=== PATIENT | female | born 1955 | race Caucasian/White ===

== ENCOUNTER 2017-01-02 11:56 | Emergency (ER) | payer MEDICARE ==
--- NOTE | 2017-01-02 12:59 | ER Document Report ---
ED Medical Screen (RME) - General Stated Complaint: ANXIETY Time seen by provider: 12:56 Mode of Arrival: Medic Information source: Patient TRAVEL OUTSIDE OF THE [place] IN LAST 30 DAYS: No - HPI Patient complains to provider of: DIAPHORETIC WHILE HAVING BLOOD DRAWN AT [facility] DX Onset: Just prior to arrival Onset/Duration: Sudden Context: PT STATES SHE GETS ANXIOUS WHEN SHE SEES NEEDLES. BECAME SWEAT AND PALE. STATES FEELING BETTER NOW. Quality of pain: No pain Severity: None Pain Level: Denies Associated Symptoms: Cough (nonproductive), Dizzy/lightheaded, Nausea, Rhinorrhea, Sweating, Weakness. denies: Chest pain, Fever, Headache, Vomiting Exacerbated by: Denies Relieved by: Denies Similar symptoms previously: Yes Recently seen / treated by doctor: No - Related Data Smoking: Non-smoker Frequency of alcohol use: None Drug Abuse: None Pertinent History: HTN HYPOTHYROID ANXIETY/DEPRESSION OCD OSTERPOROSIS AGORAPHOBIA Allergies/Adverse Reactions: amoxicillin [Amoxicillin] Allergy (Verified 01/02/17 12:56) clavulanic acid [Clavulanic Acid] Allergy (Verified 01/02/17 12:56) Past Medical History - Past Medical History Cardiac Medical History: Reports: Hx Hypertension Endocrine Medical History: Reports: Hx Hypothyroidism Psychiatric Medical History: Reports: Hx Anxiety, Hx Depression, Hx Obsessive Compulsive Disorder Past Surgical History: Reports: Hx Appendectomy
[2017-01-02 13:03] VITALS: BP 138/74
== END 2017-01-02 13:04 | disposition left against medical advice (07) ==
LOC: ER 11:56
DX: F41.9 Anxiety disorder, unspecified (principal); R61 Generalized hyperhidrosis; R23.1 Pallor; R42 Dizziness and giddiness; R05 Cough; R11.0 Nausea; J34.89 Other specified disorders of nose and nasal sinuses; R53.1 Weakness; I10 Essential (primary) hypertension; Z88.0 Allergy status to penicillin; Z53.20 Procedure and treatment not carried out because of patient's decision for unspecified reasons
CPT/HCPCS: 99281

== ENCOUNTER → 2017-01-02 | Outpatient (CLI) | payer MEDICARE ==
[2017-01-02 11:52] LABS: ABSOLUTE EOSINOPHILS # (AUTO) 0.1 10^3/uL (0.0-0.6); ABSOLUTE LYMPHOCYTES (AUTO) 1.6 10^3/uL (0.5-4.7); ABSOLUTE MONOCYTES (AUTO) 0.3 10^3/uL (0.1-1.4); ABSOLUTE NEUT (AUTO) 2.5 10^3/uL (1.7-8.2); BASOPHILS % (AUTO) 0.7 % (0-2); EOSINOPHILS % (AUTO) 2.3 % (0-6); HEMATOCRIT 42.9 % (36.0-47.0); HEMOGLOBIN 14.3 g/dL (12.0-15.5); LYMPHOCYTES % (AUTO) 35.3 % (13-45); MEAN CORPUSCULAR HEMOGLOBIN 28.9 pg (27.0-33.4); MEAN CORPUSCULAR HGB CONC 33.3 g/dL (32.0-36.0); MEAN CORPUSCULAR VOLUME 87 fl (80-97); MONOCYTES % (AUTO) 7.1 % (3-13); RED BLOOD COUNT 4.94 10^6/uL (3.72-5.28); SEGMENTED NEUTROPHILS % (AUTO) 54.6 % (42-78); WHITE BLOOD COUNT 4.5 10^3/uL (4.0-10.5)
[2017-01-02 12:15] LABS: ALANINE AMINOTRANSFERASE 32 U/L (9-52); ALBUMIN 4.4 g/dL (3.5-5.0); ALKALINE PHOSPHATASE 92 U/L (38-126); ANION GAP 11 (5-19); ASPARTATE AMINO TRANSFERASE 26 U/L (14-36); BILIRUBIN,TOTAL 0.3 mg/dL (0.2-1.3); BLOOD UREA NITROGEN 17 mg/dL (7-20); CALCIUM 9.7 mg/dL (8.4-10.2); CARBON DIOXIDE 25 mmol/L (22-30); CHLORIDE 103 mmol/L (98-107); CHOLESTEROL 213.44 mg/dL (0-200); CREATININE RESULT 0.92 mg/dL (0.52-1.25); Direct HDL 55 mg/dL (>40); GLUCOSE 98 mg/dL (75-110); POTASSIUM 4.6 mmol/L (3.6-5.0); SODIUM 139.3 mmol/L (137-145); TOTAL PROTEIN 6.7 g/dL (6.3-8.2); TRIGLYCERIDES 98 mg/dL (<150)
[2017-01-02 12:26] LABS: DIRECT LDL 121 mg/dL (<100)
[2017-01-02 12:29] LABS: FREE T3 3.18 pg/mL (2.77-5.27)
[2017-01-02 12:42] LABS: THYROID STIMULATING HORMONE 0.79 uIU/mL (0.47-4.68)
== END ==
LOC: OD 11:01
PROVIDERS: ATTEND Family Medicine
DX: E03.9 Hypothyroidism, unspecified (principal); E87.1 Hypo-osmolality and hyponatremia; E55.9 Vitamin D deficiency, unspecified; I10 Essential (primary) hypertension; Z79.899 Other long term (current) drug therapy
CPT/HCPCS: 36415; 80048; 80061; 80076; 82306; 84439; 84443; 84481; 85025

== ENCOUNTER 2017-05-30 22:42 | Emergency (ER) | payer MEDICARE ==
[2017-05-30] MEDS ORDERED: HYDROCODONE/ACETAMINOPHEN 5-325 MG TABLET PO ONE (23:54)
--- NOTE | 2017-05-31 00:58 | ER Document Report ---
ED General - General Chief Complaint: Low Back Pain Stated Complaint: LOWER BACK AND LEG PAIN Time Seen by Provider: 05/30/17 23:46 Mode of Arrival: Ambulatory Information source: Patient Notes: 61-year-old female presents with complaints of low back pain rating down her leg. Patient notes symptoms have been ongoing for 1 month. Patient denies any fevers or chills nausea vomiting or diarrhea. Patient has been seen multiple times by her primary care physician and chiropractor notes improvement in pain but then it comes back. Patient has not been treated with any steroids or narcotics TRAVEL OUTSIDE OF THE [place] IN LAST 30 DAYS: No - HPI Onset: Other Onset/Duration: Persistent Quality of pain: Achy Severity: Mild Pain Level: 1 Associated symptoms: Body/muscle aches Exacerbated by: Movement Relieved by: Denies Similar symptoms previously: Yes Recently seen / treated by doctor: Yes - Related Data Allergies/Adverse Reactions: amoxicillin [Amoxicillin] Allergy (Verified 05/30/17 23:00) clavulanic acid [Clavulanic Acid] Allergy (Verified 05/30/17 23:00) Home Medications: Current Home Medications Citalopram Hydrobromide [Citalopram HBr] 1 tab PO DAILY 05/30/17 [History] Levothyroxine Sodium [Synthroid 50 Mcg Tablet] 1 tab PO DAILY 05/30/17 [History] Lisinopril 1 tab PO DAILY 05/30/17 [History] Methocarbamol 1 tab PO Q4H PRN 05/30/17 [History] Past Medical History - Social History Smoking Status: Never Smoker Cigarette use (# per day): No Chew tobacco use (# tins/day): No Smoking Education Provided: No Frequency of alcohol use: None Drug Abuse: None Family History: Reviewed & Not Pertinent Patient has suicidal ideation: No Patient has homicidal ideation: No - Past Medical History Cardiac Medical History: Reports: Hx Hypertension Endocrine Medical History: Reports: Hx Hypothyroidism Renal/ Medical History: Denies: Hx Peritoneal Dialysis Psychiatric Medical History: Reports: Hx Anxiety, Hx Depression, Hx Obsessive Compulsive Disorder Past Surgical History: Reports: Hx Appendectomy - Immunizations Hx Diphtheria, Pertussis, Tetanus Vaccination: Yes Review of Systems - Review of Systems Notes: REVIEW OF SYSTEMS: CONSTITUTIONAL : Denies fever, chills, or sweats. Denies recent illness. EENT: Denies eye, ear, throat, or mouth pain or symptoms. Denies nasal or sinus congestion or discharge. Denies throat, tongue, or mouth swelling or difficulty swallowing. CARDIOVASCULAR: Denies chest pain. Denies palpitations or racing or irregular heart beat. Denies ankle edema. RESPIRATORY: Denies cough, cold, or chest congestion. Denies shortness of breath, difficulty breathing, or wheezing. GASTROINTESTINAL: Denies abdominal pain or distention. Denies nausea, vomiting , or diarrhea. Denies blood in vomitus, stools, or per rectum. Denies black, tarry stools. Denies constipation. GENITOURINARY: Denies difficulty urinating, painful urination, burning, frequency, blood in urine, or discharge. FEMALE GENITOURINARY: Denies vaginal bleeding, heavy or abnormal periods, irregular periods. Denies vaginal discharge or odor. MUSCULOSKELETAL: Admits to flank pain rating down her leg SKIN: Denies rash, lesions or sores. HEMATOLOGIC : Denies easy bruising or bleeding. LYMPHATIC: Denies swollen, enlarged glands. NEUROLOGICAL: Denies confusion or altered mental status. Denies passing out or loss of consciousness. Denies dizziness or lightheadedness. Denies headache. Denies weakness or paralysis or loss of use of either side. Denies problems with gait or speech. Denies sensory loss, numbness, or tingling. Denies seizures. PSYCHIATRIC: Denies anxiety or stress. Denies depression, suicidal ideation, or homicidal ideation. ALL OTHER SYSTEMS REVIEWED AND NEGATIVE. PHYSICAL EXAMINATION: GENERAL: Well-appearing, well-nourished and in no acute distress. HEAD: Atraumatic, normocephalic. EYES: Pupils equal round and reactive to light, extraocular movements intact, conjunctiva are normal. ENT: Nares patent, oropharynx clear without exudates. Moist mucous membranes. NECK: Normal range of motion, supple without lymphadenopathy LUNGS: Breath sounds clear to auscultation bilaterally and equal. No wheezes rales or rhonchi. HEART: Regular rate and rhythm without murmurs ABDOMEN: Soft, nontender, nondistended abdomen. No guarding, no rebound. No masses appreciated. Female : deferred Musculoskeletal: Mild left CVA tenderness NEUROLOGICAL: Cranial nerves grossly intact. Normal speech, normal gait. Normal sensory, motor exams PSYCH: Normal mood, normal affect. SKIN: Warm, Dry, normal turgor, no rashes or lesions noted. Dictation was performed using [employer] voice recognition software Physical Exam - Vital signs Vitals: Temp Pulse Resp BP Pulse Ox 99.3 F 113 H 22 H 147/83 H 100 05/30/17 23:03 05/30/17 23:03 05/30/17 23:03 05/30/17 23:03 05/30/17 23:03 Course - Re-evaluation Re-evalutation: 05/31/17 04:03 Physical examination notes no significant abnormality patient was given pain control and states her symptoms have resolved completely. She will be treated with anti-inflammatories and narcotics and is otherwise in no significant distress. Patient has no cauda equina concerns After performing a Medical Screening Examination, I estimate there is LOW risk for EXPANDING OR RUPTURED ABDOMINAL AORTIC ANEURYSM, CAUDA EQUINA SYNDROME, EPIDURAL MASS LESION, or HERNIATED DISK CAUSING SEVERE SPINAL STENOSIS, thus I consider the discharge disposition reasonable. I have reevaluated this patient multiple times and no significant life threatening changes are noted. The patient and I have discussed the diagnosis and risks, and we agree with discharging home and close follow-up. We also discussed returning to the Emergency Department immediately if new or worsening symptoms occur with the understanding that symptoms and presentations can change. We have discussed the symptoms which are most concerning (e.g., saddle anesthesia, urinary or bowel incontinence or retention, changing or worsening pain) that necessitate immediate return. - Vital Signs Vital signs: Temp Pulse Resp BP Pulse Ox 99.3 F 102 H 18 132/76 H 99 05/30/17 23:03 05/31/17 01:58 05/31/17 01:58 05/31/17 01:58 05/31/17 01:58 Discharge - Discharge Clinical Impression: Low back pain Qualifiers: Chronicity: acute Back pain laterality: left Sciatica presence: with sciatica Sciatica laterality: sciatica of left side Qualified Code(s): M54.42 - Lumbago with sciatica, left side Condition: Stable Disposition: HOME, SELF-CARE Instructions: Low Back Pain ([facility]) Prescriptions: Hydrocodone/Acetaminophen [Kihei 5-325 mg Tablet] 1 tab PO Q6 #10 tablet Prednisone [Deltasone 20 mg Tablet] 3 tab PO DAILY 5 Days Referrals: SRIRAM DOAN MD [Primary Care Provider] - Follow up tomorrow
[2017-05-31 02:00] VITALS: BP 132/76
== END 2017-05-31 01:58 | disposition home or self-care (01) ==
LOC: ER 22:42
DX: M54.42 Lumbago with sciatica, left side (principal); I10 Essential (primary) hypertension; Z88.0 Allergy status to penicillin
CPT/HCPCS: 99283; A9270

== ENCOUNTER 2017-06-07 10:23 | Emergency (ER) | payer MEDICARE ==
[2017-06-07] MEDS ORDERED: CYCLOBENZAPRINE HCL 10 MG TABLET PO ONE (10:36)
--- NOTE | 2017-06-07 10:39 | ER Document Report ---
ED Medical Screen (RME) - General Chief Complaint: Back Pain Stated Complaint: WEAKNESS Time Seen by Provider: 06/07/17 10:35 Mode of Arrival: Wheelchair Information source: Patient TRAVEL OUTSIDE OF THE [place] IN LAST 30 DAYS: No - HPI Patient complains to provider of: low back pain, generalized weakness, dizziness Onset: Other - 5 weeks Notes: 06/07/17 10:37 Patient is a 61-year-old female who presents to the emergency room complaining of low back pain is been going on for approximately 5 weeks, states she felt something snap in her back initially, she has been seen by her primary care provider, chiropractors, sports medicine physician, and in this emergency department for her symptoms over the past 5 weeks and she has had no relief with various treatment modalities, this morning she stated she felt something snap in her back once again and is now in "excruciating" pain - Related Data Allergies/Adverse Reactions: amoxicillin [Amoxicillin] Allergy (Verified 06/07/17 10:26) clavulanic acid [Clavulanic Acid] Allergy (Verified 06/07/17 10:26) Past Medical History - Past Medical History Cardiac Medical History: Reports: Hx Hypertension Endocrine Medical History: Reports: Hx Hypothyroidism Renal/ Medical History: Denies: Hx Peritoneal Dialysis Psychiatric Medical History: Reports: Hx Anxiety, Hx Depression, Hx Obsessive Compulsive Disorder Past Surgical History: Reports: Hx Appendectomy - Immunizations Hx Diphtheria, Pertussis, Tetanus Vaccination: Yes Physical Exam - Vital signs Vitals: Temp Pulse Resp BP Pulse Ox 97.6 F 119 H 24 H 176/94 H 99 06/07/17 10:06/07/17 10:06/07/17 10:06/07/17 10:06/07/17 10:26 Course - Vital Signs Vital signs: Temp Pulse Resp BP Pulse Ox 97.6 F 119 H 24 H 176/94 H 99 06/07/17 10:06/07/17 10:06/07/17 10:06/07/17 10:06/07/17 10:26
[2017-06-07] MEDS ORDERED: LORAZEPAM 1 MG TABLET PO ONE (11:04)
--- NOTE | 2017-06-07 11:07 | ER Document Report ---
ED Neck/Back Problem - General Mode of Arrival: Wheelchair TRAVEL OUTSIDE OF THE [place] IN LAST 30 DAYS: No - HPI Associated symptoms: Other - see above <MARTIN BLAND - Last Filed: 06/07/17 11:05> <VILMA HDEZ - Last Filed: 06/07/17 15:17> - General Chief Complaint: Back Pain Stated Complaint: WEAKNESS Time Seen by Provider: 06/07/17 10:35 Notes: Patient is a 61 year old female who presents to the ED with complaints of low back pain x5 weeks. Patient states she has seen her PCP, chiropractor, sports medicine physician and has been seen in the ED already for this pain with no relief from various medications and treatments. Patient states she had x rays done and was diagnosed with a muscle strain. Patient states this morning she woke up and tried to get out of bed and started having "excruciating pain". Patient states that the pain radiates down her left side of her left leg. (MARTIN BLAND) This 61-year-old female patient comes emergency room complaining of low back pain for 5 weeks. She reported started when she felt something pop in her lumbar back. She felt the same sensation again this morning and developed a new excruciating pain going down the left lateral thigh to the ankle. She was supposed to see her primary care this afternoon but came here instead. She was seen here on 05/30/2017 complaining of low back pain and left leg pain. 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 She does get benefit from chiropractic manipulation off and on but the discomfort comes back. Her physical exam shows some lumbar muscle tenderness, predominantly she has tenderness in the left lateral thigh along the tensor fascia nila. She also complains of numbness to the left hand, and Tinel and Phalen tests seem to be positive for carpal tunnel syndrome. (VILMA HDEZ) - Related Data Allergies/Adverse Reactions: amoxicillin [Amoxicillin] Allergy (Verified 06/07/17 10:26) clavulanic acid [Clavulanic Acid] Allergy (Verified 06/07/17 10:26) Past Medical History - General Information source: Patient - Social History Smoking Status: Never Smoker Frequency of alcohol use: None Drug Abuse: None Family History: Reviewed & Not Pertinent - Past Medical History Cardiac Medical History: Reports: Hx Hypertension Endocrine Medical History: Reports: Hx Hypothyroidism Renal/ Medical History: Denies: Hx Peritoneal Dialysis Psychiatric Medical History: Reports: Hx Anxiety, Hx Depression, Hx Obsessive Compulsive Disorder Past Surgical History: Reports: Hx Appendectomy - Immunizations Hx Diphtheria, Pertussis, Tetanus Vaccination: Yes <BALDOMARTIN - Last Filed: 06/07/17 11:05> Review of Systems - Review of Systems Constitutional: No symptoms reported EENT: No symptoms reported Cardiovascular: No symptoms reported Respiratory: No symptoms reported Gastrointestinal: No symptoms reported Genitourinary: No symptoms reported Female Genitourinary: No symptoms reported Musculoskeletal: See HPI, Back pain Skin: No symptoms reported Hematologic/Lymphatic: No symptoms reported Neurological/Psychological: No symptoms reported <BALDOMARTIN - Last Filed: 06/07/17 11:05> Physical Exam - General General appearance: Appears well, Alert In distress: None - HEENT Head: Normocephalic, Atraumatic Eyes: Normal Extraocular movements intact: Yes Pupils: PERRL - Respiratory Respiratory status: No respiratory distress Breath sounds: Normal - Cardiovascular Rhythm: Regular Heart sounds: Normal auscultation Murmur: No - Abdominal Inspection: Normal - Back Back: Normal - Extremities General upper extremity: Normal inspection, Normal ROM General lower extremity: Normal inspection, Normal ROM Wrist: Other - positive tinel and phalen testing - Neurological Neuro grossly intact: Yes - Psychological Associated symptoms: Normal affect, Normal mood - Skin Skin Temperature: Warm Skin Moisture: Dry Skin Color: Normal <BALDOMARTIN - Last Filed: 06/07/17 11:05> Course - Diagnostic Test Radiology reviewed: Image reviewed, Reports reviewed - The MRI of her lumbar spine shows a left paracentral disc herniation at L4-5 with flattening of the thecal sac near the takeoff of the left proximal L5 nerve root in the lateral recess. <VILMA HDEZ - Last Filed: 06/07/17 15:17> - Vital Signs Vital signs: Temp Pulse Resp BP Pulse Ox 97.6 F 119 H 24 H 126/79 H 92 06/07/17 10:26 06/07/17 10:26 06/07/17 13:00 06/07/17 12:01 06/07/17 13:00 Discharge <MARTIN BLAND - Last Filed: 06/07/17 11:05> <VILMA HDEZ - Last Filed: 06/07/17 15:17> - Discharge Clinical Impression: Herniated intervertebral disc of lumbar spine, Lumbosacral radiculopathy at L5 , Carpal tunnel syndrome of left wrist Condition: Stable Disposition: HOME, SELF-CARE Additional Instructions: Radiculopathy: Radiculopathy is irritation of a nerve. Sometimes this is called "pinched nerve." The pain can be sharp and stabbing, constant and dull, or burning in nature. The pain can occur in any area of the chest, shoulders, or arms. Sometimes the pain is provoked by coughing or moving. Radiculopathy can be caused by physical pressure on a nerve, such as a herniated disc or swollen joint in the spine. It can also be caused by viral infections within the nerve or by nerve damage due to diabetes or blood vessel disease. Radicular pain is treated with antiinflammatory medicine. Injections may help resistant cases, if we can identify a single nerve that's causing the pain. Surgery is usually not necessary. If symptoms do not improve with time, you may need additional testing, such as an MRI or EMG (electromyogram). Return if there is local weakness or numbness, shortness of breath, increasing pain, or other new symptoms. Carpal Tunnel Syndrome: Your examination suggests carpal tunnel syndrome of the left wrist. This syndrome is due to pressure on a nerve in the wrist. The pressure may be caused by an old injury, hard work using the wrist, work involving repeated motions of the hand, wrist positions that keep pressure on the joint, or arthritis in the wrist. Typical symptoms are tingling, numbness, and pain in the palm, thumb, index and middle fingers, and one side of the ring finger. Often a splint, ice packs, and antiinflammatory medication make the symptoms go away. If the physician feels that your problem is chronic, you will be referred to a specialist for further care. If symptoms do not go away, carpal tunnel syndrome may require surgery. You should call the doctor if pain increases, if you develop difficulty using the thumb or fingers, or if major swelling occurs. TAKE THE MEDICATION PRESCRIBED. REST IN A COMFORTABLE POSITION. FOLLOW UP WITH YOUR DOCTOR FOR REFERRAL TO A SPINE SURGEON FOR YOUR BACK AND A HAND SURGEON FOR YOUR WRIST. RETURN TO THE EMERGENCY ROOM IF ANY NEW OR WORSENING SYMPTOMS. Prescriptions: Hydrocodone/Acetaminophen [Hydrocodon-Acetaminophen 5-325] 1 each PO ASDIR PRN # 15 tablet PRN Reason: Referrals: SRIRAM DOAN MD [Primary Care Provider] - Follow up in 3-5 days Scribe Attestation: 06/07/17 14:34 I personally performed the services described in the documentation, reviewed and edited the documentation which was dictated to the scribe in my presence, and it accurately records my words and actions. (VILMA HDEZ) Scribe Documentation - Scribe Written by Trisha:: trisha Stearns, 06/07/2017, [id number] acting as scribe for :: Jina <MARTIN BLAND - Last Filed: 06/07/17 11:05>
[2017-06-07 11:16] LABS: APPEARANCE,URINE CLEAR; BILIRUBIN,URINE NEGATIVE (NEGATIVE); GLUCOSE, URINE NEGATIVE (NEGATIVE); KETONES,URINE NEGATIVE (NEGATIVE); LEUKOCYTE ESTERASE,URINE NEGATIVE (NEGATIVE); NITRITE,URINE NEGATIVE (NEGATIVE); PROTEIN,URINE NEGATIVE (NEGATIVE); URINE SPECIFIC GRAVITY 1.003; UROBILINOGEN,URINE NEGATIVE mg/dL (<2.0)
--- NOTE | 2017-06-07 14:35 | RADIOLOGY REPORT (SQ) ---
EXAM DESCRIPTION: MRI LUMBAR SPINE WITHOUT COMPLETED DATE/TIME: 06/07/2017 2:01 pm REASON FOR STUDY: LBP, left lat thigh and leg pain COMPARISON: CT abdomen 03/15/2010 Lumbar spine plain films 08/12/2015 TECHNIQUE: Sagittal and Axial imaging includes T1, T2, STIR and gradient echo sequences. Coronal T2/ HASTE imaging. LIMITATIONS: None. FINDINGS: VISUALIZED UPPER ABDOMEN: There is a right-sided ureteropelvic junction obstruction with m assive right hydronephrosis and diffuse right renal cortical thinning air. This is similar compared to CT from 03/15/2010. SEGMENTATION: No transitional anatomy. The lowest well-developed disc space is labeled L5-S1. ALIGNMENT: Anatomic. VERTEBRAE: Intact. BONE MARROW: Normal. No marrow replacement or reactive changes. DISC SIGNAL: Diffuse decreased T2 weighted intervertebral disc signal. There is disc space loss of h eight at L2-3 and L3-4. POSTERIOR ELEMENTS: Generally intact. No pars defect evident. HARDWARE: None in the spine. CORD AND CONUS: Normal in size and signal intensity. Conus at the L1-2 level. SOFT TISSUES: No aortic aneurysm seen. No bulky retroperitoneal adenopathy or mass. No paraspinal mas s or fluid. T12-L1: Unremarkable L1-L2: Mild diffuse posterior disc bulging, moderate bilateral facet and ligament hypertrophy cause b orderline central canal narrowing. No significant foraminal stenosis. L2-L3: Mild bilateral facet and ligament hypertrophy. Very mild left foraminal and lateral disc bulg ing. No central stenosis. No significant foraminal narrowing. L3-L4: Broad diffuse posterior disc bulge, moderate bilateral facet and ligament hypertrophy. No barbra tral stenosis. Mild right inferior foraminal narrowing without exiting L3 nerve root impingement. N o significant left L3-4 foraminal narrowing. L4-L5: Broad diffuse posterior disc bulging is present with a moderate-sized left paracentral disc he rniation, flattening the thecal sac near the takeoff of the left L5 nerve root in the lateral recess. These findings are best shown on axial T2 images 21-23, and sagittal image 8. No significant centr al canal stenosis. There is mild bilateral L4-5 foraminal narrowing without exiting L4 nerve root im pingement. L5-S1: Bulky bilateral facet hypertrophy right greater than left. No central stenosis. Mild right f oraminal narrowing without exiting L5 nerve root impingement. No left foraminal stenosis. LOWER THORACIC: Incompletely imaged. No stenosis seen. SACRUM: Visualized upper sacrum intact. OTHER: No other significant findings. IMPRESSION: Left paracentral disc herniation at L4-5, flattening the thecal sac near the takeoff of the left proximal L5 nerve root in the lateral recess Chronic right UPJ obstruction TECHNICAL DOCUMENTATION: JOB ID: [id number] [employer]- All Rights Reserved
[2017-06-07 15:49] VITALS: BP 121/76
== END 2017-06-07 15:49 | disposition home or self-care (01) ==
LOC: ER 10:23
DX: M51.26 Other intervertebral disc displacement, lumbar region (principal); M54.17 Radiculopathy, lumbosacral region; G56.02 Carpal tunnel syndrome, left upper limb; M54.9 Dorsalgia, unspecified; M54.5 Low back pain
CPT/HCPCS: 99284; 87086; 81001; 72148; A9270

== ENCOUNTER 2017-07-16 17:28 | Observation (INO) | payer OTHER, MEDICARE ==
[2017-07-16] MEDS ORDERED: ACETAMINOPHEN 325 MG TABLET PO PRN (18:48)
[2017-07-16] MEDS ORDERED: ONDANSETRON HCL INJ/PF 4 MG/2 ML SDV IV PRN (18:48)
[2017-07-16] MEDS ORDERED: NORMAL SALINE 1000 ML 1,000 ML IV PRN (18:48)
--- NOTE | 2017-07-16 19:09 | PDOC H&P ---
History of Present Illness Admission Date/PCP: 07/16/17 17:28 SRIRAM DOAN MD Patient complains of: Intractable back pain History of Present Illness: ADRIA FREEMAN is a 61 year old female with history of vitamin D deficiency as well as hypothyroidism, osteoporosis developed severe back pain of about 3 months duration. There was no history of fall. Apparently she tried to get up in bed and she felt a pop on her low back and that is when her symptoms started 3 months ago. Patient had seen by physician multiple times and has taken anti-inflammatories as well as muscle relaxants and analgesics without relief. Patient was seen in the emergency room as well as several days. Patient had an MRI of her lumbosacral spine showing herniated disc at L4 and L5. She was supposed to go to the pain clinic for intra-articular steroid injection but unable to comply. She was sent to the hospital directly by her primary care physician for admission. Patient reports the pain on the middle low back radiating to both lower extremities. There is no associated nausea or vomiting but there is numbness on the lower extremity. No chills or fever no dysuria urgency or frequency. Past Medical History Cardiac Medical History: Reports: Hypertension Endocrine Medical History: Reports: Hypothyroidism Psychiatric Medical History: Reports: Depression, General Anxiety Disorder, Other - Obsessive-compulsive. [place] phobia. Hematology: Reports: Other - Vitamin D deficiency. Past Surgical History Past Surgical History: Reports: Appendectomy Social History Information Source: Patient Smoking Status: Never Smoker Frequency of Alcohol Use: None Hx Recreational Drug Use: No Drugs: None Hx Prescription Drug Abuse: No Family History Family History: None Parental Family History Reviewed: Yes Children Family History Reviewed: Yes Sibling(s) Family History Reviewed.: Yes Medication/Allergy Home Medications: Citalopram Hydrobromide [Citalopram HBr] 1 tab PO DAILY 05/30/17 Levothyroxine Sodium [Synthroid 50 Mcg Tablet] 1 tab PO DAILY 05/30/17 Lisinopril 1 tab PO DAILY 05/30/17 Methocarbamol 1 tab PO Q4H PRN 05/30/17 Hydrocodone/Acetaminophen [Davison 5-325 mg Tablet] 1 tab PO Q6 #10 tablet Prednisone [Deltasone 20 mg Tablet] 3 tab PO DAILY 5 Days tablet 05/31/17 Hydrocodone/Acetaminophen [Hydrocodon-Acetaminophen 5-325] 1 each PO ASDIR PRN # 15 tablet 06/07/17 Allergies/Adverse Reactions: amoxicillin [Amoxicillin] Allergy (Verified 06/07/17 10:26) clavulanic acid [Clavulanic Acid] Allergy (Verified 06/07/17 10:26) Review of Systems Constitutional: PRESENT: weakness - Generalized with ambulatory dysfunction due to pain. ABSENT: chills, fever(s), headache(s), night sweats, weight gain, weight loss Eyes: ABSENT: visual disturbances Ears: ABSENT: hearing changes Nose, Mouth, and Throat: ABSENT: mouth pain, sore throat Cardiovascular: ABSENT: chest pain, dyspnea on exertion, edema, orthropnea, palpitations Respiratory: ABSENT: cough, dyspnea, hemoptysis, sputum Gastrointestinal: ABSENT: abdominal pain, bloating, constipation, diarrhea, hematemesis, hematochezia, melena, nausea, vomiting Genitourinary: ABSENT: dysuria, hematuria Musculoskeletal: ABSENT: joint swelling Integumentary: ABSENT: pruritus, rash, wounds Neurological: PRESENT: lack of coordination, numbness - Lower extremities bilateral, paresthesias - Bilateral. ABSENT: abnormal gait, abnormal speech, confusion, dizziness, focal weakness, frequent falls, syncope Psychiatric: PRESENT: anxiety, depression. ABSENT: homidical ideation, suicidal ideation Endocrine: ABSENT: cold intolerance, heat intolerance, polydipsia, polyuria Hematologic/Lymphatic: ABSENT: easy bleeding, easy bruising Physical Exam Vital Signs: Temp Pulse Resp BP Pulse Ox 98.7 F 79 18 118/80 100 07/16/17 18:01 07/16/17 18:01 07/16/17 18:01 07/16/17 18:01 07/16/17 18:01 Intake & Output 07/15/17 07/16/17 07/17/17 06:59 06:59 06:59 Weight 63.957 kg General appearance: PRESENT: cooperative, mild distress - Due to pain, morbidly obese Head exam: PRESENT: atraumatic, normocephalic Eye exam: PRESENT: conjunctiva pink, EOMI, PERRLA. ABSENT: scleral icterus Ear exam: PRESENT: normal external ear exam Mouth exam: PRESENT: moist, neck supple, tongue midline Neck exam: ABSENT: carotid bruit, JVD, lymphadenopathy, thyromegaly Respiratory exam: PRESENT: clear to auscultation lyn. ABSENT: rales, rhonchi, wheezes Cardiovascular exam: PRESENT: RRR. ABSENT: diastolic murmur, rubs, systolic murmur Pulses: PRESENT: normal dorsalis pedis pul Vascular exam: PRESENT: normal capillary refill GI/Abdominal exam: PRESENT: normal bowel sounds, soft, other - Percussion tenderness on the lumbosacral area. ABSENT: distended, guarding, mass, organolmegaly, rebound, tenderness Rectal exam: PRESENT: deferred Extremities exam: PRESENT: full ROM. ABSENT: calf tenderness, clubbing, pedal edema Neurological exam: PRESENT: alert, awake, oriented to person, oriented to place , oriented to time, oriented to situation Psychiatric exam: PRESENT: anxious, appropriate affect, normal mood. ABSENT: homicidal ideation, suicidal ideation Skin exam: PRESENT: dry, intact, warm. ABSENT: cyanosis, rash Assessment & Plan - Diagnosis (1) Intractable low back pain Is this a current diagnosis for this admission?: Yes (2) Anxiety and depression Is this a current diagnosis for this admission?: Yes (3) Essential hypertension Is this a current diagnosis for this admission?: Yes (4) Acquired hypothyroidism Is this a current diagnosis for this admission?: Yes (5) Vitamin D deficiency Is this a current diagnosis for this admission?: Yes (6) Osteoporosis Qualifiers: Osteoporosis type: unspecified Presence of current pathological fracture: unspecified Qualified Code(s): M81.0 - Age-related osteoporosis without current pathological fracture Is this a current diagnosis for this admission?: Yes (7) Obsessive compulsive disorder Qualifiers: Obsessive-compulsive disorder type: unspecified Qualified Code(s): F42.9 - Obsessive-compulsive disorder, unspecified Is this a current diagnosis for this admission?: Yes (8) Agoraphobia Is this a current diagnosis for this admission?: Yes - Time Time Spent: 30 to 50 Minutes - Plan Summary Plan Summary: The patient will be admitted to the medical floor. We will obtain routine laboratory including urinalysis CBC and basic metabolic panel. We will obtain PT PTT as well. We will consult pain management for further evaluation. In the meantime I will try the patient on Mobic, intravenous Decadron, muscle relaxant and as needed narcotics for pain control. We will have physical therapy involved as well. DVT prophylaxis with Lovenox will be placed. We will obtain a lumbosacral spine x-ray. Further testing depends on initial evaluation and per specialty recommendations outlined above.
[2017-07-16 20:26] LABS: HEMOGLOBIN 13.6 g/dL (12.0-15.5); HGB HCT DIFFERENCE -0.2; MEAN CORPUSCULAR HEMOGLOBIN 29.3 pg (27.0-33.4); MEAN CORPUSCULAR HGB CONC 33.1 g/dL (32.0-36.0); MEAN CORPUSCULAR VOLUME 89 fl (80-97); RED BLOOD COUNT 4.62 10^6/uL (3.72-5.28); RED CELL DISTRIBUTION WIDTH 13.9 % (11.5-14.0); WHITE BLOOD COUNT 6.9 10^3/uL (4.0-10.5)
[2017-07-16 20:43] LABS: PROTHROMBIN TIME 12.9 SEC (11.4-15.4)
[2017-07-16 20:44] LABS: PARTIAL THROMBOPLASTIN TIME 30.6 SEC (23.5-35.8)
[2017-07-16 20:45] LABS: ANION GAP 8 (5-19); BLOOD UREA NITROGEN 19 mg/dL (7-20); CALCIUM 9.8 mg/dL (8.4-10.2); CARBON DIOXIDE 28 mmol/L (22-30); CHLORIDE 98 mmol/L (98-107); CREATININE RESULT 0.74 mg/dL (0.52-1.25); GLUCOSE 104 mg/dL (75-110); POTASSIUM 3.7 mmol/L (3.6-5.0); SODIUM 133.8 mmol/L (137-145)
[2017-07-16] MEDS ORDERED: MELOXICAM 15 MG TABLET PO ONE (21:00)
[2017-07-16] MEDS: DEXAMETHASONE SOD PHOS INJ 10 MG/1 ML VIAL IV SCH (21:01)
[2017-07-16] MEDS: CYCLOBENZAPRINE HCL 10 MG TABLET PO SCH (21:01)
[2017-07-16 23:07] LABS: APPEARANCE,URINE CLEAR; BILIRUBIN,URINE NEGATIVE (NEGATIVE); GLUCOSE, URINE NEGATIVE (NEGATIVE); KETONES,URINE NEGATIVE (NEGATIVE); LEUKOCYTE ESTERASE,URINE NEGATIVE (NEGATIVE); NITRITE,URINE NEGATIVE (NEGATIVE); PROTEIN,URINE NEGATIVE (NEGATIVE); URINE SPECIFIC GRAVITY 1.003; UROBILINOGEN,URINE NEGATIVE mg/dL (<2.0)
[2017-07-16] MEDS: OXYCODONE-ACETAMINOPHEN 5-325 MG TABLET PO PRN (23:10)
--- NOTE | 2017-07-17 00:51 | RADIOLOGY REPORT (SQ) ---
EXAM DESCRIPTION: L SPINE WHOLE COMPLETED DATE/TIME: 07/16/2017 9:52 pm REASON FOR STUDY: back pain COMPARISON: 08/12/2015. NUMBER OF VIEWS: Five views including obliques. TECHNIQUE: AP, lateral, oblique, and sacral radiographic images acquired of the lumbar spine. LIMITATIONS: None. FINDINGS: MINERALIZATION: Osteopenia. SEGMENTATION: Normal. No transitional anatomy. ALIGNMENT: Normal. VERTEBRAE: Maintained height. No fracture or worrisome bone lesion. DISCS: Moderate disc desiccation between the L2 and S1 levels. POSTERIOR ELEMENTS: Moderate lower lumbar spondylosis at the L5-S1 level. HARDWARE: None in the spine. PARASPINAL SOFT TISSUES: Normal. PELVIS: Intact as visualized. No fractures or worrisome bone lesions. SI joints intact. OTHER: No other significant finding. IMPRESSION: [id number] disc desiccation and spondylosis of the lumbar spine. No significant i nterval change. TECHNICAL DOCUMENTATION: JOB ID: [id number] [employer]- All Rights Reserved
[2017-07-17] MEDS ORDERED: LANSOPRAZOLE 30 MG TAB.RAP.DR PO SCH (06:00)
[2017-07-17] MEDS: DEXAMETHASONE SOD PHOS INJ 10 MG/1 ML VIAL IV SCH ×2 (06:45→13:37)
[2017-07-17] MEDS: CYCLOBENZAPRINE HCL 10 MG TABLET PO SCH ×2 (06:46→13:37)
[2017-07-17] MEDS: OXYCODONE-ACETAMINOPHEN 5-325 MG TABLET PO PRN ×2 (08:23→13:55)
[2017-07-17] MEDS ORDERED: MELOXICAM 7.5 MG TABLET PO SCH (10:00)
[2017-07-17] MEDS ORDERED: LISINOPRIL 10 MG TABLET PO SCH (10:00)
[2017-07-17] MEDS ORDERED: CITALOPRAM HYDROBROMIDE PO SCH (10:00)
[2017-07-17] MEDS ORDERED: CITALOPRAM HYDROBROMIDE 20 MG TABLET PO SCH (10:00)
[2017-07-17] MEDS ORDERED: DOCUSATE SODIUM 100 MG CAPSULE PO SCH (10:00)
[2017-07-17] MEDS ORDERED: (PENDING PHARMACY ID) (Lisinopril [Lisinopril] 1 TAB) PO SCH (10:00)
[2017-07-17] MEDS ORDERED: LEVOTHYROXINE SODIUM 0.05 MG TABLET PO SCH (10:00)
[2017-07-17] MEDS ORDERED: ENOXAPARIN SODIUM INJ 40 MG/0.4 ML DISP.SYRIN SUBCUT SCH ×2 (10:00)
--- NOTE | 2017-07-17 11:42 | PDOC DISCHARGE SUMMARY ---
General - Admit/Disc Date/PCP Admission Date/Primary Care Provider: 07/16/17 18:48 SRIRAM DOAN MD Discharge Date: 07/17/17 - Discharge Diagnosis (1) Intractable low back pain Is this a current diagnosis for this admission?: Yes Summary: Treated with IV steroids and pain medications. Patient has had improvement but not resolution of the pain. (2) Anxiety and depression Is this a current diagnosis for this admission?: Yes (3) Acquired hypothyroidism Is this a current diagnosis for this admission?: Yes (4) Essential hypertension Is this a current diagnosis for this admission?: Yes (5) Obsessive compulsive disorder Is this a current diagnosis for this admission?: Yes (6) Osteoporosis Is this a current diagnosis for this admission?: Yes (7) Vitamin D deficiency Is this a current diagnosis for this admission?: Yes - Additional Information Discharge Diet: Regular Discharge Activity: Activity As Tolerated Home Medications: Citalopram Hydrobromide [Citalopram HBr] 1 tab PO DAILY 05/30/17 Levothyroxine Sodium [Synthroid 0.05 mg Tablet] 1 tab PO DAILY 05/30/17 Lisinopril 1 tab PO DAILY 05/30/17 Methocarbamol 1 tab PO Q4H PRN 05/30/17 Hydrocodone/Acetaminophen [Hydrocodon-Acetaminophen 5-325] 1 each PO ASDIR PRN # 15 tablet 06/07/17 Methylprednisolone [Medrol Dosepack (4 mg/Tab) 21 Tab/Dosepak] 4 mg PO ASDIR PRN #21 tab.ds.pk 07/17/17 Oxycodone HCl 5 mg PO Q6HP PRN #10 tablet 07/17/17 History of Present Illness History of Present Illness: ADRIA FREEMAN is a 61 year old female presented with severe lower back pain with left-sided sciatica. Patient has been dealing with back pain for the last 3 months. The patient has taken anti-inflammatories and muscle relaxants. The patient was supposed to have an epidural injection but canceled that because of fear regarding the procedure. She has an appointment in 2 weeks to see a back surgeon for an L4-L5 herniated disc. She has had no bowel or bladder dysfunction and no muscle weakness. She is admitted for intractable pain. Hospital Course Hospital Course: 61-year-old female who was admitted with intractable back pain. The patient has a history of an L4-L5 disc herniation. The patient had been treated as an outpatient but continued to have pain. Patient was given IV steroids in the form of Decadron as well as oxycodone. Patient reports that her pain has improved. She denies any radicular symptoms at this time. She does complain of left ankle pain however it is reproducible with palpation of her lateral ankle joint. Patient has not had any bowel or bladder dysfunction. She has not had any focal weakness. The patient reports that her pain is improved but has not resolved. It is tolerable with oral pain medications and I feel she is stable for discharge to home. Patient has an appointment with orthopedic surgery within the next several weeks for consideration of an epidural injection versus other noninvasive means of treatment. The patient did have an appointment for an epidural injection but canceled that because of her fear of the injection. Patient also has anxiety and hypertension both of which were stable during this hospitalization. Patient is being sent home on a tapering dose of Medrol. She reports having problems with prednisone in the past but has not had any problems while hospitalized on the IV steroids. Physical Exam Vital Signs: Temp Pulse Resp BP Pulse Ox 97.8 F 63 15 140/82 H 99 07/17/17 07:55 07/17/17 10:00 07/17/17 07:55 07/17/17 07:55 07/17/17 07:55 Intake & Output 07/16/17 07/17/17 07/18/17 06:59 06:59 06:59 Intake Total 1800 Balance 1800 Weight 63.957 kg General appearance: PRESENT: no acute distress Eye exam: PRESENT: conjunctiva pink. ABSENT: scleral icterus Ear exam: PRESENT: normal external ear exam Mouth exam: PRESENT: moist, tongue midline Neck exam: ABSENT: JVD Respiratory exam: PRESENT: clear to auscultation lyn. ABSENT: rales, rhonchi, wheezes Cardiovascular exam: PRESENT: RRR. ABSENT: diastolic murmur, rubs, systolic murmur GI/Abdominal exam: PRESENT: normal bowel sounds, soft. ABSENT: distended, guarding, mass, organolmegaly, rebound, tenderness Rectal exam: PRESENT: deferred Extremities exam: ABSENT: calf tenderness, clubbing, pedal edema Musculoskeletal exam: PRESENT: tenderness - Tenderness palpation of the left lateral ankle joint. Minimal effusion. Neurological exam: PRESENT: alert, awake, oriented to person, oriented to place , oriented to time, oriented to situation, CN II-XII grossly intact. ABSENT: motor sensory deficit Psychiatric exam: PRESENT: anxious Skin exam: PRESENT: dry, intact, warm. ABSENT: cyanosis, rash Results Laboratory Results: 07/16/17 20:15 07/16/17 20:15 07/16/17 07/16/17 07/16/17 20:15 20:15 21:30 WBC 6.9 RBC 4.62 Hgb 13.6 Hct 41.0 MCV 89 MCH 29.3 MCHC 33.1 RDW 13.9 Plt Count 204 Sodium 133.8 L Potassium 3.7 Chloride 98 Carbon Dioxide 28 Anion Gap 8 BUN 19 Creatinine 0.74 Est GFR ( Amer) > 60 Est GFR (Non-Af Amer) > 60 Glucose 104 Calcium 9.8 Urine Color COLORLESS Urine Appearance CLEAR Urine pH 7.0 Ur Specific [place] 1.003 Urine Protein NEGATIVE Urine Glucose (UA) NEGATIVE Urine Ketones NEGATIVE Urine Blood NEGATIVE Urine Nitrite NEGATIVE Ur Leukocyte Esterase NEGATIVE Impressions: Lumbar Spine X-Ray 07/16/17 00:00 IMPRESSION: [id number] disc desiccation and spondylosis of the lumbar spine. No significant interval change. Qualifiers PATEINT BEING DISCHARGED WITH ANY OF THE FOLLOWING DIAGNOSIS?: No Plan Discharge Plan: Is discharged home. She will follow-up with her primary care doctor in 1 week. Patient already has an appointment with a back surgeon in the next several weeks. Time Spent: Less than 30 Minutes
[2017-07-17 11:44] VITALS: BP 135/72
== END 2017-07-17 15:45 | disposition home or self-care (01) ==
LOC: 2N 17:28 → UNDOADMOB 17:28 → 2N 18:48
DX: M54.42 Lumbago with sciatica, left side (principal); F41.1 Generalized anxiety disorder; F32.9 Major depressive disorder, single episode, unspecified; E03.9 Hypothyroidism, unspecified; I10 Essential (primary) hypertension; F42.9 Obsessive-compulsive disorder, unspecified; M81.0 Age-related osteoporosis without current pathological fracture; E55.9 Vitamin D deficiency, unspecified; M25.572 Pain in left ankle and joints of left foot; F40.00 Agoraphobia, unspecified; M51.26 Other intervertebral disc displacement, lumbar region; R26.89 Other abnormalities of gait and mobility; R27.9 Unspecified lack of coordination; E66.01 Morbid (severe) obesity due to excess calories; Z79.899 Other long term (current) drug therapy; Z82.49 Family history of ischemic heart disease and other diseases of the circulatory system
CPT/HCPCS: 36415; 85027; 85610; 85730; 80048; 81001; 72110; J1650; J3490; J7030; J1100 ×2

== ENCOUNTER → 2017-07-19 | Outpatient (CLI) | payer OTHER, MEDICARE ==
--- NOTE | 2017-07-19 16:52 | RADIOLOGY REPORT (SQ) ---
EXAM DESCRIPTION: FOOT LEFT COMPLETE COMPLETED DATE/TIME: 07/19/2017 4:03 pm REASON FOR STUDY: PAIN IN LEFT ANKLE AND JOINTS OF LEFT FOOT M25.572 PAIN IN LEFT ANKLE AND JOINTS OF LEFT FOOT COMPARISON: Left ankle three views same date NUMBER OF VIEWS: Three views. TECHNIQUE: AP, lateral and oblique radiographic images acquired of the left foot. LIMITATIONS: None. FINDINGS: MINERALIZATION: Normal. BONES: No acute fracture or dislocation. No worrisome bone lesions. JOINTS: 1st metatarsophalangeal joint osteoarthritis with joint space narrowing and bony spurring. SOFT TISSUES: No soft tissue swelling. No foreign body. OTHER: Small plantar and dorsal calcaneal spurs IMPRESSION: No acute fracture. 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
--- NOTE | 2017-07-19 16:53 | RADIOLOGY REPORT (SQ) ---
EXAM DESCRIPTION: ANKLE LEFT COMPLETE COMPLETED DATE/TIME: 07/19/2017 4:03 pm REASON FOR STUDY: PAIN IN LEFT ANKLE AND JOINTS OF LEFT FOOT M25.572 PAIN IN LEFT ANKLE AND JOINTS OF LEFT FOOT COMPARISON: Left foot three views same date NUMBER OF VIEWS: Three views. TECHNIQUE: AP, lateral, and oblique radiographic images acquired of the left ankle. LIMITATIONS: None. FINDINGS: MINERALIZATION: Normal. BONES: No acute fracture or dislocation. No worrisome bone lesions. JOINTS: No effusions. No malalignment at the ankle mortise SOFT TISSUES: No soft tissue swelling. No foreign body. OTHER: Small plantar calcaneal spur IMPRESSION: No acute findings. TECHNICAL DOCUMENTATION: JOB ID: [id number] [employer]- All Rights Reserved
== END ==
LOC: OD 15:36
PROVIDERS: ATTEND Family Medicine
DX: M25.572 Pain in left ankle and joints of left foot (principal); M19.072 Primary osteoarthritis, left ankle and foot

== ENCOUNTER → 2017-07-19 | Outpatient (CLI) | payer OTHER, MEDICARE ==
[2017-07-19 13:45] LABS: ANION GAP 11 (5-19); BLOOD UREA NITROGEN 24 mg/dL (7-20); CALCIUM 9.9 mg/dL (8.4-10.2); CARBON DIOXIDE 29 mmol/L (22-30); CHLORIDE 99 mmol/L (98-107); CREATININE RESULT 0.86 mg/dL (0.52-1.25); GLUCOSE 86 mg/dL (75-110); POTASSIUM 4.6 mmol/L (3.6-5.0); SODIUM 138.9 mmol/L (137-145)
== END ==
LOC: OD 12:48
PROVIDERS: ATTEND Family Medicine
DX: R60.0 Localized edema (principal)
CPT/HCPCS: 36415; 80048; 85379

== ENCOUNTER → 2017-10-09 | Outpatient (CLI) | payer OTHER, MEDICARE ==
[2017-10-09 14:28] LABS: ABSOLUTE EOSINOPHILS # (AUTO) 0.1 10^3/uL (0.0-0.6); ABSOLUTE LYMPHOCYTES (AUTO) 1.7 10^3/uL (0.5-4.7); ABSOLUTE MONOCYTES (AUTO) 0.5 10^3/uL (0.1-1.4); ABSOLUTE NEUT (AUTO) 3.2 10^3/uL (1.7-8.2); BASOPHILS % (AUTO) 0.3 % (0-2); EOSINOPHILS % (AUTO) 1.4 % (0-6); HEMATOCRIT 41.9 % (36.0-47.0); HEMOGLOBIN 14.4 g/dL (12.0-15.5); HGB HCT DIFFERENCE 1.3; LYMPHOCYTES % (AUTO) 31.6 % (13-45); MEAN CORPUSCULAR HEMOGLOBIN 29.6 pg (27.0-33.4); MEAN CORPUSCULAR HGB CONC 34.5 g/dL (32.0-36.0); MEAN CORPUSCULAR VOLUME 86 fl (80-97); MONOCYTES % (AUTO) 8.2 % (3-13); RED BLOOD COUNT 4.88 10^6/uL (3.72-5.28); RED CELL DISTRIBUTION WIDTH 13.4 % (11.5-14.0); SEGMENTED NEUTROPHILS % (AUTO) 58.5 % (42-78); WHITE BLOOD COUNT 5.5 10^3/uL (4.0-10.5)
[2017-10-09 14:48] LABS: ALANINE AMINOTRANSFERASE 42 U/L (9-52); ALBUMIN 4.3 g/dL (3.5-5.0); ALKALINE PHOSPHATASE 91 U/L (38-126); ANION GAP 11 (5-19); ASPARTATE AMINO TRANSFERASE 28 U/L (14-36); BILIRUBIN,DIRECT 0.4 mg/dL (0.0-0.4); BILIRUBIN,TOTAL 0.5 mg/dL (0.2-1.3); BLOOD UREA NITROGEN 20 mg/dL (7-20); CALCIUM 9.8 mg/dL (8.4-10.2); CARBON DIOXIDE 26 mmol/L (22-30); CHLORIDE 101 mmol/L (98-107); CREATININE RESULT 0.82 mg/dL (0.52-1.25); GLUCOSE 88 mg/dL (75-110); POTASSIUM 4.4 mmol/L (3.6-5.0); SODIUM 137.6 mmol/L (137-145); TOTAL PROTEIN 6.6 g/dL (6.3-8.2)
[2017-10-09 15:01] LABS: FREE T3 3.2 pg/mL (2.77-5.27)
[2017-10-09 15:15] LABS: THYROID STIMULATING HORMONE 0.61 uIU/mL (0.47-4.68)
== END ==
LOC: OD 13:08
PROVIDERS: ATTEND Family Medicine
DX: E03.9 Hypothyroidism, unspecified (principal); Z79.899 Other long term (current) drug therapy
CPT/HCPCS: 36415; 80053; 82306; 84439; 84443; 84481; 85025

== ENCOUNTER → 2018-05-14 | Outpatient (CLI) | payer MEDICARE, OTHER ==
[2018-05-14 15:55] LABS: ABSOLUTE EOSINOPHILS # (AUTO) 0.1 10^3/uL (0.0-0.6); ABSOLUTE MONOCYTES (AUTO) 0.4 10^3/uL (0.1-1.4); ABSOLUTE NEUT (AUTO) 2.8 10^3/uL (1.7-8.2); BASOPHILS % (AUTO) 0.6 % (0-2); EOSINOPHILS % (AUTO) 1.3 % (0-6); HEMATOCRIT 41.7 % (36.0-47.0); HEMOGLOBIN 14.5 g/dL (12.0-15.5); LYMPHOCYTES % (AUTO) 37.9 % (13-45); MEAN CORPUSCULAR HEMOGLOBIN 29.7 pg (27.0-33.4); MEAN CORPUSCULAR HGB CONC 34.9 g/dL (32.0-36.0); MEAN CORPUSCULAR VOLUME 85 fl (80-97); MONOCYTES % (AUTO) 7.6 % (3-13); PLATELET COUNT 190 10^3/uL (150-450); RED BLOOD COUNT 4.89 10^6/uL (3.72-5.28); RED CELL DISTRIBUTION WIDTH 13.6 % (11.5-14.0); SEGMENTED NEUTROPHILS % (AUTO) 52.6 % (42-78); TOTAL CELLS COUNTED % (AUTO) 100 %; WHITE BLOOD COUNT 5.3 10^3/uL (4.0-10.5)
[2018-05-14 16:30] LABS: ALANINE AMINOTRANSFERASE 34 U/L (9-52); ALBUMIN 4.3 g/dL (3.5-5.0); ALKALINE PHOSPHATASE 94 U/L (38-126); ANION GAP 14 (5-19); ASPARTATE AMINO TRANSFERASE 30 U/L (14-36); BILIRUBIN,DIRECT 0.3 mg/dL (0.0-0.4); BILIRUBIN,TOTAL 0.3 mg/dL (0.2-1.3); BLOOD UREA NITROGEN 20 mg/dL (7-20); CALCIUM 9.9 mg/dL (8.4-10.2); CARBON DIOXIDE 25 mmol/L (22-30); CHLORIDE 104 mmol/L (98-107); GLUCOSE 92 mg/dL (75-110); POTASSIUM 4.7 mmol/L (3.6-5.0); SODIUM 142.8 mmol/L (137-145); TOTAL PROTEIN 6.9 g/dL (6.3-8.2)
[2018-05-14 16:45] LABS: FREE T3 3.36 pg/mL (2.77-5.27); FREE T4 (FREE THYROXINE) 1.1 ng/dL (0.78-2.19)
[2018-05-14 16:58] LABS: THYROID STIMULATING HORMONE 1.27 uIU/mL (0.47-4.68)
== END ==
LOC: OD 15:14
PROVIDERS: ATTEND Family Medicine
DX: E03.9 Hypothyroidism, unspecified (principal); Z79.899 Other long term (current) drug therapy
CPT/HCPCS: 36415; 80053; 84439; 84443; 84481; 85025

== ENCOUNTER → 2018-10-23 | Outpatient (CLI) | payer OTHER, MEDICARE ==
[2018-10-23 14:39] LABS: ABSOLUTE EOSINOPHILS # (AUTO) 0.1 10^3/uL (0.0-0.6); ABSOLUTE LYMPHOCYTES (AUTO) 1.6 10^3/uL (0.5-4.7); ABSOLUTE MONOCYTES (AUTO) 0.3 10^3/uL (0.1-1.4); ABSOLUTE NEUT (AUTO) 2.6 10^3/uL (1.7-8.2); BASOPHILS % (AUTO) 0.5 % (0-2); EOSINOPHILS % (AUTO) 1.2 % (0-6); HEMATOCRIT 42.4 % (36.0-47.0); HEMOGLOBIN 14.6 g/dL (12.0-15.5); MEAN CORPUSCULAR HEMOGLOBIN 29.1 pg (27.0-33.4); MEAN CORPUSCULAR HGB CONC 34.5 g/dL (32.0-36.0); MEAN CORPUSCULAR VOLUME 84 fl (80-97); MONOCYTES % (AUTO) 6.5 % (3-13); PLATELET COUNT 189 10^3/uL (150-450); RED BLOOD COUNT 5.02 10^6/uL (3.72-5.28); RED CELL DISTRIBUTION WIDTH 13.7 % (11.5-14.0); SEGMENTED NEUTROPHILS % (AUTO) 56.8 % (42-78); TOTAL CELLS COUNTED % (AUTO) 100 %; WHITE BLOOD COUNT 4.5 10^3/uL (4.0-10.5)
[2018-10-23 14:55] LABS: ALANINE AMINOTRANSFERASE 26 U/L (9-52); ALBUMIN 4.6 g/dL (3.5-5.0); ALKALINE PHOSPHATASE 86 U/L (38-126); ANION GAP 8 (5-19); ASPARTATE AMINO TRANSFERASE 31 U/L (14-36); BILIRUBIN,DIRECT 0.3 mg/dL (0.0-0.4); BILIRUBIN,TOTAL 0.6 mg/dL (0.2-1.3); BLOOD UREA NITROGEN 19 mg/dL (7-20); CALCIUM 9.7 mg/dL (8.4-10.2); CARBON DIOXIDE 28 mmol/L (22-30); CHLORIDE 103 mmol/L (98-107); CHOLESTEROL 222.89 mg/dL (0-200); GLUCOSE 92 mg/dL (75-110); POTASSIUM 4.2 mmol/L (3.6-5.0); SODIUM 139.3 mmol/L (137-145); TRIGLYCERIDES 74 mg/dL (<150)
[2018-10-23 15:16] LABS: DIRECT LDL 138 mg/dL (<100)
[2018-10-23 15:22] LABS: FREE T3 3.67 pg/mL (2.77-5.27); FREE T4 (FREE THYROXINE) 1.25 ng/dL (0.78-2.19)
[2018-10-23 15:35] LABS: THYROID STIMULATING HORMONE 0.64 uIU/mL (0.47-4.68)
== END ==
LOC: OD 13:20
PROVIDERS: ATTEND Family Medicine
DX: Z79.899 Other long term (current) drug therapy (principal); E03.9 Hypothyroidism, unspecified; I10 Essential (primary) hypertension
CPT/HCPCS: 36415; 80053; 80061; 82306; 84439; 84443; 84481; 85025

== ENCOUNTER → 2019-05-01 | Outpatient (CLI) | payer MEDICARE ==
[2019-05-01 15:13] LABS: ABSOLUTE EOSINOPHILS # (AUTO) 0.1 10^3/uL (0.0-0.6); ABSOLUTE LYMPHOCYTES (AUTO) 1.9 10^3/uL (0.5-4.7); ABSOLUTE MONOCYTES (AUTO) 0.4 10^3/uL (0.1-1.4); ABSOLUTE NEUT (AUTO) 3.3 10^3/uL (1.7-8.2); BASOPHILS % (AUTO) 0.5 % (0-2); EOSINOPHILS % (AUTO) 1.2 % (0-6); HEMOGLOBIN 14.1 g/dL (12.0-15.5); LYMPHOCYTES % (AUTO) 33.2 % (13-45); MEAN CORPUSCULAR HGB CONC 34.3 g/dL (32.0-36.0); MEAN CORPUSCULAR VOLUME 85 fl (80-97); MONOCYTES % (AUTO) 7.4 % (3-13); PLATELET COUNT 186 10^3/uL (150-450); RED BLOOD COUNT 4.84 10^6/uL (3.72-5.28); RED CELL DISTRIBUTION WIDTH 13.7 % (11.5-14.0); SEGMENTED NEUTROPHILS % (AUTO) 57.7 % (42-78); TOTAL CELLS COUNTED % (AUTO) 100 %; WHITE BLOOD COUNT 5.6 10^3/uL (4.0-10.5)
[2019-05-01 15:32] LABS: ALANINE AMINOTRANSFERASE 30 U/L (9-52); ALBUMIN 4.4 g/dL (3.5-5.0); ALKALINE PHOSPHATASE 105 U/L (38-126); ANION GAP 8 (5-19); ASPARTATE AMINO TRANSFERASE 32 U/L (14-36); BILIRUBIN,DIRECT 0.3 mg/dL (0.0-0.4); BILIRUBIN,TOTAL 0.4 mg/dL (0.2-1.3); BLOOD UREA NITROGEN 22 mg/dL (7-20); CALCIUM 9.6 mg/dL (8.4-10.2); CARBON DIOXIDE 26 mmol/L (22-30); CHLORIDE 101 mmol/L (98-107); GLUCOSE 91 mg/dL (75-110); POTASSIUM 4.8 mmol/L (3.6-5.0); SODIUM 135.2 mmol/L (137-145); TOTAL PROTEIN 6.8 g/dL (6.3-8.2)
[2019-05-01 15:48] LABS: FREE T3 3.57 pg/mL (2.77-5.27); FREE T4 (FREE THYROXINE) 1.01 ng/dL (0.78-2.19)
[2019-05-01 16:01] LABS: THYROID STIMULATING HORMONE 1.54 uIU/mL (0.47-4.68)
== END ==
LOC: OD 14:25
PROVIDERS: ATTEND Family Medicine
DX: E03.9 Hypothyroidism, unspecified (principal); Z79.899 Other long term (current) drug therapy
CPT/HCPCS: 36415; 80053; 84439; 84443; 84481; 85025

== ENCOUNTER → 2019-11-17 | Outpatient (CLI) | payer MEDICARE | LOC: OD 14:17 | PROVIDERS: ATTEND Family Medicine | DX: Z11.4 Encounter for screening for human immunodeficiency virus [HIV] (principal) | CPT/HCPCS: 36415; 86701 ==

== ENCOUNTER → 2019-12-10 | Outpatient (CLI) | payer MEDICARE ==
[2019-12-12 13:56] LABS: ABSOLUTE EOSINOPHILS # (AUTO) 0.1 10^3/uL (0.0-0.6); ABSOLUTE LYMPHOCYTES (AUTO) 1.8 10^3/uL (0.5-4.7); ABSOLUTE MONOCYTES (AUTO) 0.3 10^3/uL (0.1-1.4); ABSOLUTE NEUT (AUTO) 2.8 10^3/uL (1.7-8.2); BASOPHILS % (AUTO) 0.5 % (0-2); EOSINOPHILS % (AUTO) 1.2 % (0-6); HEMATOCRIT 40.7 % (36.0-47.0); LYMPHOCYTES % (AUTO) 35.4 % (13-45); MEAN CORPUSCULAR HEMOGLOBIN 29.3 pg (27.0-33.4); MEAN CORPUSCULAR HGB CONC 34.5 g/dL (32.0-36.0); MEAN CORPUSCULAR VOLUME 85 fl (80-97); MONOCYTES % (AUTO) 6.7 % (3-13); PLATELET COUNT 189 10^3/uL (150-450); RED CELL DISTRIBUTION WIDTH 14.2 % (11.5-14.0); SEGMENTED NEUTROPHILS % (AUTO) 56.2 % (42-78); TOTAL CELLS COUNTED % (AUTO) 100 %
[2019-12-12 14:20] LABS: ALBUMIN 4.3 g/dL (3.5-5.0); ALKALINE PHOSPHATASE 88 U/L (38-126); ANION GAP 8 (5-19); ASPARTATE AMINO TRANSFERASE 28 U/L (14-36); BILIRUBIN,DIRECT 0.2 mg/dL (0.0-0.4); BILIRUBIN,TOTAL 0.4 mg/dL (0.2-1.3); BLOOD UREA NITROGEN 17 mg/dL (7-20); CALCIUM 9.6 mg/dL (8.4-10.2); CARBON DIOXIDE 27 mmol/L (22-30); CHLORIDE 101 mmol/L (98-107); CHOLESTEROL 225.18 mg/dL (0-200); GLUCOSE 83 mg/dL (75-110); POTASSIUM 4.3 mmol/L (3.6-5.0); TOTAL PROTEIN 7.1 g/dL (6.3-8.2); TRIGLYCERIDES 137 mg/dL (<150)
[2019-12-12 14:36] LABS: DIRECT LDL 137 mg/dL (<100)
[2019-12-12 15:01] LABS: FREE T3 2.61 pg/mL (2.77-5.27); FREE T4 (FREE THYROXINE) 0.95 ng/dL (0.78-2.19)
[2019-12-12 15:14] LABS: THYROID STIMULATING HORMONE 1.4 uIU/mL (0.47-4.68)
== END ==
LOC: OD 14:29
PROVIDERS: ATTEND Family Medicine
DX: E03.9 Hypothyroidism, unspecified (principal); I10 Essential (primary) hypertension; E55.9 Vitamin D deficiency, unspecified; Z79.899 Other long term (current) drug therapy
CPT/HCPCS: 36415; 80053; 80061; 82306; 84439; 84443; 84481; 85025

== ENCOUNTER 2020-08-26 00:28 | Emergency (ER) | payer MEDICARE ==
[2020-08-26] MEDS ORDERED: NORMAL SALINE 1000 ML 1,000 ML IV ONE (00:58)
--- NOTE | 2020-08-26 01:02 | ER Document Report ---
ED Medical Screen (RME) - General Chief Complaint: Near Syncope Stated Complaint: NAUSEA Time Seen by Provider: 08/26/20 00:58 Primary Care Provider: SRIRAM DOAN MD [Primary Care Provider] - Follow up as needed Mode of Arrival: Stretcher Information source: Patient Notes: Patient is a 64-year-old female coming in today with a near syncopal episode. Got up this evening to go to urinate and almost passed out. States that she has been off of her SSRI citalopram for several months and recently restarted it. Ever since then she has been having strange dilatations of her pupils. She has just not been feeling well for quite some time. Has numerous complaints related. Denies chest pain or shortness of breath. General: Nontoxic cardiac regular rate and rhythm No acute distress I have greeted and performed a rapid initial assessment of this patient. A comprehensive ED assessment and evaluation of the patient, analysis of test results and completion of the medical decision making process will be conducted by additional ED providers. TRAVEL OUTSIDE OF THE [place] IN LAST 30 DAYS: No - Related Data Allergies/Adverse Reactions: amoxicillin [Amoxicillin] Allergy (Verified 06/07/17 10:26) clavulanic acid [Clavulanic Acid] Allergy (Verified 06/07/17 10:26) NSAIDS (Non-Steroidal Anti-Inflamma Allergy (Verified 08/26/20 00:58) prednisone Allergy (Verified 08/26/20 00:58) Past Medical History - Past Medical History Cardiac Medical History: Reports: Hx Hypertension Endocrine Medical History: Reports: Hx Hypothyroidism Renal/ Medical History: Denies: Hx Peritoneal Dialysis Psychiatric Medical History: Reports: Hx Anxiety, Hx Depression, Hx Obsessive Compulsive Disorder Past Surgical History: Reports: Hx Appendectomy - Immunizations Hx Diphtheria, Pertussis, Tetanus Vaccination: Yes Physical Exam - Vital signs Vitals: Temp Pulse Resp BP Pulse Ox 98.6 F 72 18 130/65 H 98 08/26/20 00:38 08/26/20 00:38 08/26/20 00:38 08/26/20 00:38 08/26/20 00:38 Course - Vital Signs Vital signs: Temp Pulse Resp BP Pulse Ox 98.6 F 72 18 130/65 H 98 08/26/20 00:38 08/26/20 00:38 08/26/20 00:38 08/26/20 00:38 08/26/20 00:38 Doctor's Discharge - Discharge Referrals: SRIRAM DOAN MD [Primary Care Provider] - Follow up as needed
[2020-08-26 01:56] LABS: ABSOLUTE EOSINOPHILS # (AUTO) 0.1 10^3/uL (0.0-0.6); ABSOLUTE LYMPHOCYTES (AUTO) 2.1 10^3/uL (0.5-4.7); ABSOLUTE MONOCYTES (AUTO) 0.5 10^3/uL (0.1-1.4); ABSOLUTE NEUT (AUTO) 4.5 10^3/uL (1.7-8.2); BASOPHILS % (AUTO) 0.6 % (0-2); HEMATOCRIT 41.3 % (36.0-47.0); HEMOGLOBIN 14.2 g/dL (12.0-15.5); LYMPHOCYTES % (AUTO) 28.7 % (13-45); MEAN CORPUSCULAR HEMOGLOBIN 29.8 pg (27.0-33.4); MEAN CORPUSCULAR HGB CONC 34.4 g/dL (32.0-36.0); MEAN CORPUSCULAR VOLUME 87 fl (80-97); MONOCYTES % (AUTO) 7.3 % (3-13); PLATELET COUNT 252 10^3/uL (150-450); RED BLOOD COUNT 4.77 10^6/uL (3.72-5.28); RED CELL DISTRIBUTION WIDTH 13.5 % (11.5-14.0); SEGMENTED NEUTROPHILS % (AUTO) 62.4 % (42-78); TOTAL CELLS COUNTED % (AUTO) 100 %; WHITE BLOOD COUNT 7.2 10^3/uL (4.0-10.5)
[2020-08-26 02:10] LABS: ALBUMIN 4.1 g/dL (3.5-5.0); ALKALINE PHOSPHATASE 103 U/L (38-126); ANION GAP 8 (5-19); ASPARTATE AMINO TRANSFERASE 29 U/L (14-36); BILIRUBIN,DIRECT 0.3 mg/dL (0.0-0.4); BILIRUBIN,TOTAL 0.4 mg/dL (0.2-1.3); BLOOD UREA NITROGEN 25 mg/dL (7-20); CALCIUM 9.7 mg/dL (8.4-10.2); CARBON DIOXIDE 27 mmol/L (22-30); CHLORIDE 100 mmol/L (98-107); GLUCOSE 112 mg/dL (75-110); POTASSIUM 4.9 mmol/L (3.6-5.0); TOTAL PROTEIN 6.3 g/dL (6.3-8.2)
--- NOTE | 2020-08-26 03:51 | ER Document Report ---
ED General - General Chief Complaint: Near Syncope Stated Complaint: NAUSEA Time Seen by Provider: 08/26/20 00:58 Primary Care Provider: SRIRAM DOAN MD [Primary Care Provider] - Follow up as needed Mode of Arrival: Stretcher TRAVEL OUTSIDE OF THE [place] IN LAST 30 DAYS: No - HPI Notes: 64-year-old female presents after she had an episode where she thought she was going to at home. Patient states that she got up to use the restroom around 11:20 PM, states that she really was not feeling well, after urination and standing up from the toilet, she had an episode of lightheadedness where she felt she was going to pass out. She did not pass out. She had no other associated symptoms. She currently symptom free. Patient states that she believes she is having a reaction to restarting citalopram. Patient states that she last took citalopram in January. She states that on July 19 she had a panic attack. She states that on July 21 she went to buddhist. Patient then states that in June she had several days of diarrhea. She states that she had a colonoscopy on August 12 due to the fact that she had so much diarrhea, she has not yet received results yet. Patient states that on Sunday she had a telephone call with her PCP office discussed that she really has not been feeling well since June. It was decided that she should restart her citalopram. On Sunday she took 10 mg of citalopram. She states that after taking her first dose, she felt that her pupils were dilated and that her heart was racing, however she was doing 2 loads of laundry so she ignored her symptoms. She states yesterday after taking 10 mg of citalopram, she again felt as if her pupils were dilating and she had some difficulty concentrating. She called her PCP and was advised to stop taking the medication. She also states that she is not able to go into the office per their Covid policy, rather she drives and sits in the parking lot and talks on her cell phone, she does not have Internet to do a video visit. Patient states in summation, she has just not been feeling well since June. - Related Data Allergies/Adverse Reactions: amoxicillin [Amoxicillin] Allergy (Verified 06/07/17 10:26) clavulanic acid [Clavulanic Acid] Allergy (Verified 06/07/17 10:26) NSAIDS (Non-Steroidal Anti-Inflamma Allergy (Verified 08/26/20 00:58) prednisone Allergy (Verified 08/26/20 00:58) Past Medical History - General Information source: Patient - Social History Smoking Status: Never Smoker Family History: None Patient has homicidal ideation: No - Past Medical History Cardiac Medical History: Reports: Hx Hypertension Endocrine Medical History: Reports: Hx Hypothyroidism Renal/ Medical History: Denies: Hx Peritoneal Dialysis Psychiatric Medical History: Reports: Hx Anxiety, Hx Depression, Hx Obsessive Compulsive Disorder Past Surgical History: Reports: Hx Appendectomy - Immunizations Hx Diphtheria, Pertussis, Tetanus Vaccination: Yes Review of Systems - Review of Systems Constitutional: denies: Fever EENT: denies: Blurred vision Cardiovascular: denies: Chest pain Respiratory: denies: Short of breath Gastrointestinal: denies: Abdominal pain Genitourinary: No symptoms reported Female Genitourinary: No symptoms reported Musculoskeletal: No symptoms reported Skin: No symptoms reported Hematologic/Lymphatic: No symptoms reported Neurological/Psychological: Anxiety Physical Exam - Vital signs Vitals: Temp Pulse Resp BP Pulse Ox 98.6 F 72 18 130/65 H 98 08/26/20 00:38 08/26/20 00:38 08/26/20 00:38 08/26/20 00:38 08/26/20 00:38 - General General appearance: Appears well, Alert In distress: None - HEENT Head: Normocephalic, Atraumatic Extraocular movements intact: Yes Pupils: PERRL. No: Dilated - Respiratory Breath sounds: Normal - Cardiovascular Rhythm: Regular Heart sounds: Normal auscultation - Abdominal Tenderness: Nontender - Extremities General upper extremity: Normal ROM General lower extremity: Normal ROM. No: Edema - Neurological Neuro grossly intact: Yes Cognition: Normal Orientation: AAOx4 Cranial nerves: Normal Cerebellar coordination: Normal Motor strength normal: LUE Sensory: Normal - Psychological Associated symptoms: Flat affect - Skin Skin Temperature: Warm Course - Re-evaluation Re-evalutation: 64-year-old female here with an episode of lightheadedness/presyncope after she stood up after urination. She had no chest pain or shortness of breath at the time, episode quickly resolved, she is currently symptom-free. Suspect she may had had a micturition response or some brief orthostasis related to standing. She is well-appearing, nontoxic, vital signs stable, lungs are clear, heart RRR, no neuro deficits. Patient also gives very long history of not feeling well since June. She also reports some potential side effects to taking citalopram which she has since stopped. Laboratory evaluation done through triage. No leukocytosis or left shift. No acute anemia. Electrolytes okay. Creatinine within normal limits. No elevation of LFTs. Patient was given these results. She is currently receiving 1 L of normal saline, will also check a urine. I discussed with her that potentially she is having a mild adjustment reaction given the Covid pandemic, she agreed that it has been causing her anxiety. 08/26/20 06:15 No UTI. 08/26/20 06:17 Patient updated on results of UTI. Encouraged her to have close PCP follow-up. Return precautions given, stable time discharge. - Vital Signs Vital signs: Temp Pulse Resp BP Pulse Ox 98.6 F 63 17 122/67 97 08/26/20 03:15 08/26/20 03:15 08/26/20 05:01 08/26/20 05:01 08/26/20 05:01 - Laboratory Result Diagrams: 08/26/20 01:31 08/26/20 01:31 Laboratory results interpreted by me: 08/26/20 01:31 Sodium 135.3 L BUN 25 H Glucose 112 H - EKG Interpretation by Me Additional EKG results interpreted by me: EKG is interpreted by me. Sinus bradycardia, rate 59. Narrow QRS, QTC within normal limits. No ST segment elevation or depression. There appeared to be some PACs. Discharge - Discharge Clinical Impression: Adverse reaction to SSRI antidepressant drug Qualifiers: Encounter type: initial encounter Qualified Code(s): T43.225A - Adverse effect of selective serotonin reuptake inhibitors, initial encounter Disposition: HOME, SELF-CARE Additional Instructions: Please follow-up with your primary care doctor, you may wish to discuss other medication alternatives. Return to the emergency department for any concerning worsening symptoms. Referrals: SRIRAM DOAN MD [Primary Care Provider] - Follow up as needed
[2020-08-26 06:05] LABS: APPEARANCE,URINE CLEAR; BILIRUBIN,URINE NEGATIVE (NEGATIVE); COLOR,URINE STRAW; GLUCOSE, URINE NEGATIVE (NEGATIVE); KETONES,URINE NEGATIVE (NEGATIVE); LEUKOCYTE ESTERASE,URINE NEGATIVE (NEGATIVE); NITRITE,URINE NEGATIVE (NEGATIVE); PROTEIN,URINE NEGATIVE (NEGATIVE); URINE SPECIFIC GRAVITY 1.005; UROBILINOGEN,URINE NEGATIVE mg/dL (<2.0)
[2020-08-26 06:38] VITALS: BP 132/78
--- NOTE | 2020-08-26 18:06 | EKG REPORT ---
SEVERITY:- NORMAL ECG - SINUS BRADYCARDIA : Confirmed by: Sammy Singh MD 26-Aug-2020 18:06:01
== END 2020-08-26 06:42 | disposition home or self-care (01) ==
LOC: ER 00:28
DX: R55 Syncope and collapse (principal); R42 Dizziness and giddiness; T43.225A Adverse effect of selective serotonin reuptake inhibitors, initial encounter; F41.9 Anxiety disorder, unspecified; R00.1 Bradycardia, unspecified; I10 Essential (primary) hypertension; Z88.0 Allergy status to penicillin; Z88.8 Allergy status to other drugs, medicaments and biological substances
CPT/HCPCS: 93005; 99284; 96360; 96361; 36415; 85025; 80053; 81001; 93010; J7030

== ENCOUNTER 2020-10-28 03:03 | Emergency (ER) | payer MEDICARE ==
[2020-10-28 04:51] LABS: A TYPE INFLUENZA AG NEGATIVE (NEGATIVE); B INFLUENZA AG NEGATIVE (NEGATIVE)
--- NOTE | 2020-10-28 06:44 | ER Document Report ---
ED General - General Chief Complaint: Nasal Congestion Stated Complaint: CONGESTION/LOST TASTE/SMELL/SORE THROAT/HEADACHE Primary Care Provider: SRIRAM DOAN MD [Primary Care Provider] - Follow up as needed Notes: 65-year-old female with history of hypertension, hypothyroidism, environmental allergies presents with approximately 5 days of frontal sinus pressure, nasal congestion, bilateral ear pain, mild throat pain. Patient says that she has had similar symptoms before with prior "sinus infections" which were previously resolved without intervention. Patient denies any copious nasal or postnasal discharge, fever, severe headache, immunocompromise history, recent antibiotics, cough, chest pain, shortness of breath, confusion, neck pain or stiffness TRAVEL OUTSIDE OF THE [place] IN LAST 30 DAYS: No - Related Data Allergies/Adverse Reactions: amoxicillin [Amoxicillin] Allergy (Verified 06/07/17 10:26) clavulanic acid [Clavulanic Acid] Allergy (Verified 06/07/17 10:26) NSAIDS (Non-Steroidal Anti-Inflamma Allergy (Verified 08/26/20 00:58) prednisone Allergy (Verified 08/26/20 00:58) Home Medications: HTN. THYROID. VIT D Past Medical History - General Information source: Patient - Social History Smoking Status: Never Smoker Frequency of alcohol use: None Drug Abuse: None Family History: None - Past Medical History Cardiac Medical History: Reports: Hx Hypertension Endocrine Medical History: Reports: Hx Hypothyroidism Renal/ Medical History: Denies: Hx Peritoneal Dialysis Psychiatric Medical History: Reports: Hx Anxiety, Hx Depression, Hx Obsessive Compulsive Disorder Past Surgical History: Reports: Hx Appendectomy - Immunizations Hx Diphtheria, Pertussis, Tetanus Vaccination: Yes Review of Systems - Review of Systems Notes: REVIEW OF SYSTEMS: CONSTITUTIONAL : Denies fever, chills, or sweats. EENT: + recent cold/sinus symptoms, + throat pain CARDIOVASCULAR: Denies chest pain, MAGI RESPIRATORY: Denies cough, denies shortness of breath. GASTROINTESTINAL: Denies abdominal pain, nausea/vomiting. GENITOURINARY: Denies difficulty urinating, painful urination. MUSCULOSKELETAL: Denies neck pain, back pain. SKIN: Denies rash or skin lesions. HEMATOLOGIC : Denies easy bruising or bleeding. LYMPHATIC: Denies swollen, enlarged glands. NEUROLOGICAL: Denies headache, denies change in gait. PSYCHIATRIC: Denies anxiety or stress or depression. Physical Exam - Vital signs Vitals: Temp Pulse Resp BP Pulse Ox 98.6 F 77 16 121/75 100 10/28/20 03:15 10/28/20 03:15 10/28/20 03:15 10/28/20 03:15 10/28/20 03:15 - Notes Notes: PHYSICAL EXAMINATION: GENERAL: Well-appearing, well-nourished and in no acute distress. HEAD: Atraumatic, normocephalic. EYES: Pupils equal round and appropriate constriction, sclera anicteric, conjunctiva are normal. ENT: nares patent, moist mucous membranes, mild pharyngeal erythema with cobblestoning, no edema, no exudates, bilateral TMs normal with intact light reflexes and no bulging/erythema/effusion NECK: Normal range of motion, supple without lymphadenopathy LUNGS: Breath sounds clear to auscultation bilaterally and equal. No wheezes rales or rhonchi. Normal respiratory rate and effort HEART: Regular rate and rhythm without murmurs ABDOMEN: Soft, nontender, no guarding, no masses, no CVAT EXTREMITIES: Normal range of motion, no pitting or edema. No cyanosis. NEUROLOGICAL: Awake, alert, conversing appropriately, moves all extremities spontaneously. PSYCH: Normal mood, normal affect. SKIN: Warm, Dry, normal turgor, no rashes or lesions noted. Course - Re-evaluation Re-evalutation: 10/28/20 06:43 Patient with mild sinus symptoms over the past 5 days, no risk factors for complicated course, presentation not consistent with bacterial sinusitis, patient afebrile with normal vital signs and very well-appearing on exam, likely viral versus allergic sinusitis. No indications for antibiotics at this time. Covid test sent, precautions given, patient ready for discharge with PCP follow- up and return precautions. Patient demonstrated understanding of when she should come back to the ED. The patient was evaluated during the global COVID-19 pandemic and that diagnosis was suspected/considered upon their initial presentation. Their evaluation, treatment and testing was consistent with current guidelines for patients who present with complaints or symptoms that may be related to COVID-19. - Vital Signs Vital signs: Temp Pulse Resp BP Pulse Ox 98.6 F 77 16 121/75 100 10/28/20 03:15 10/28/20 03:15 10/28/20 03:15 10/28/20 03:15 10/28/20 03:15 - Laboratory Results Critical Laboratory Results Reviewed: No Critical Results - Radiology Results Critical Radiology Results Reviewed: No Critical Results Discharge - Discharge Clinical Impression: Sinusitis Qualifiers: Sinusitis location: unspecified location Chronicity: acute Recurrence: recurrent Qualified Code(s): J01.91 - Acute recurrent sinusitis, unspecified Disposition: HOME, SELF-CARE Additional Instructions: Sinusitis You have sinusitis of the sinus cavities of the face. The sinuses are air- filled chambers which open into the inside of the nose. Sinusitis is treated with antibiotics. Often, expectorants (to thin the sinus mucous) or decongestants (to reduce swelling) are prescribed as well. Healing requires seven to 10 days. Avoid chemical fumes, pollens, dusts, and smoke (especially cigarette smoke). Do nasal rinses with [place] pot using salted water that you have sterilized by boiling and then let cool twice a day over the next few days. Use loratadine 10 mg by mouth once a day for the next week. You can also use Flonase nasal spray as directed on packaging. These medications are not known to affect high blood pressure. If you have any worsening pain, fever of 100.4 or higher, increased discharge from your nose or throat, confusion, change in vision, severe headache, neck pain or stiffness, or any other worsening or alarming symptoms return to the emergency department immediately. Follow-up with your primary doctor within 1 week. Referrals: SRIRAM DOAN MD [Primary Care Provider] - Follow up in 1 week
[2020-10-28 07:18] VITALS: BP 120/62
== END 2020-10-28 07:18 | disposition home or self-care (01) ==
LOC: ER 03:03
DX: U07.1 COVID-19 (principal); J01.91 Acute recurrent sinusitis, unspecified; R09.81 Nasal congestion; R43.8 Other disturbances of smell and taste; J02.9 Acute pharyngitis, unspecified; R51.9 Headache, unspecified; H92.03 Otalgia, bilateral; I10 Essential (primary) hypertension; E03.9 Hypothyroidism, unspecified; Z88.0 Allergy status to penicillin; Z88.8 Allergy status to other drugs, medicaments and biological substances; Z79.899 Other long term (current) drug therapy
CPT/HCPCS: 99283; 87070; 87880; 87804; U0003; C9803; 87635